=== PATIENT | female | born 1965 | race Caucasian/White ===

== ENCOUNTER → 2016-12-31 | Day surgery (SDC) | payer OTHER ==
--- NOTE | 2017-01-01 09:07 | OP ---
DATE OF OPERATION: 12/31/2016 PREOPERATIVE DIAGNOSIS: Right breast mass and right axillary suspicious lymph node. POSTOPERATIVE DIAGNOSIS: Right breast mass and right axillary suspicious lymph node. PROCEDURE: Right ultrasound-guided core biopsies of right axillary node and right breast mass. ANESTHESIA: Local. ATTENDING SURGEON: Ayaz Douglas MD ESTIMATED BLOOD LOSS: Minimal. COMPLICATIONS: None. DESCRIPTION OF PROCEDURE: Patient was made aware of the risks and benefits of the procedure and consented. She was placed in the supine position. The right axilla was approached first. Under sterile conditions with 1% Lidocaine for local anesthesia, a small kellie was made in the skin. Using a 13-guage suction biopsy device of the right using an inferolateral approach, multiple cores were obtained and submitted to Pathology. Likewise, under ultrasound guidance, a clip was placed into the biopsy region, well tolerated by patient. Steri-Strips and a sterile bandage were applied. Thereafter, patient got a little bit dizzy, and we had to wait some time with Trendelenburg position, but she was then ready for the right breast biopsy. Under sterile conditions with 1% Lidocaine for local anesthesia, a small kellie was made in the skin. Using a 13-guage suction biopsy device through the lateral approach under ultrasound guidance, ten cores were obtained and submitted to Pathology. Likewise, under ultrasound guidance, a U shaped clip was placed into the biopsy region, well tolerated by patient. Steri-Strips and a sterile bandage were applied. Will contact her with results. AYAZ DOUGLAS M.D. [id number]
--- NOTE | 2017-01-01 14:08 | PATH ---
Surgical Pathology Report Patient Name: ISSAC WASHBURN [facility]. Rec. #: [id number] /Age/Gender: 1965 (Age: 51) / F Account: [id number] Location: [facility] BREAST CENT Taken: 12/31/2016 Received: 12/31/2016 Reported: 01/01/2017 Physicians: Ayaz Douglas M.D. Specimen(s) Received A: RIGHT AXILLARY NODE CORE BIOPSY B: RIGHT BREAST CORE BIOPSY 10 O'CLOCK 5 CM FN Clinical History Palpable mass, highly suspicious/malignant Final Diagnosis A. 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 Comment: The largest extent of carcinoma in one core is 0.8 cm. Focal areas suggestive of micropapillary pattern are present. Results of Estrogen Receptor (ER) and Progesterone Receptor (AL) studies performed on block A1 at [facility] are as follows: ER (clone [id number] mouse monoclonal antibody by [employer]): ~80% nuclear staining with strong to moderate intensity (Positive). AL (clone16 mouse monoclonal antibody by [employer]): ~50-60% nuclear staining with strong to moderate intensity (Positive). Results of Her2 FISH studies will be reported separately in an addendum. Positive and negative controls (internal if applicable) show appropriate results. Formalin fixation and cold ischemic times are within current ASCO/CAP recommendations for ER, AL and Her2 testing. B. BREAST, RIGHT, 10:00, 5 CM FROM NIPPLE, US GUIDED CORE BIOPSY: INVASIVE DUCTAL CARCINOMA, MODERATELY DIFFERENTIATED (SEE COMMENT). LYMPHOVASCULAR INVASION PRESENT. Comment: The largest extent of carcinoma in one core is 0.4 cm. Immunohistochemical stain for E-Cadherin performed and interpreted at [facility] is positive in tumor cells supporting ductal differentiation Results of Estrogen Receptor (ER) and Progesterone Receptor (AL) studies performed on block B1 at [facility] are as follows: ER (clone [id number] mouse monoclonal antibody by [employer]): ~90% nuclear staining with strong to moderate intensity (Positive). AL (clone16 mouse monoclonal antibody by [employer]): <5% nuclear staining with moderate to weak intensity (Positive). Results of Her2 FISH studies will be reported separately in an addendum. Positive and negative controls (internal if applicable) show appropriate results. Formalin fixation and cold ischemic times are within current ASCO/CAP recommendations for ER, AL and Her2 testing. The case was preliminary discussed with Dr. Douglas on 01/01/17. Electronically Signed Alin Smith M.D. Addendum Reported: 01/04/2017 Addendum Diagnosis Part A: Results of Her2 (IHC) & Ki-67 studies performed on block A1 at [place], [place] ([id number]) are as follows: Her2 IHC (EP3 from [employer], formerly known as [id number], using [employer] Polymer Refine detection kit):1+ (Negative) Ki-67: up to 15-20% (Intermediate proliferation index) Results of Her2 FISH studies will be reported separately in an addendum. Positive and negative controls (internal if applicable) show appropriate results. Part B: Results of Her2 (IHC) & Ki-67 studies performed on block B1 at [place], [place] ([id number]) are as follows: Her2 IHC (EP3 from [employer], formerly known as [id number], using [employer] Polymer Refine detection kit): 2+ (Equivocal) Ki-67: ~20% (Intermediate proliferation index) Results of Her2 FISH studies will be reported separately in an addendum. Positive and negative controls (internal if applicable) show appropriate results. Alin Smith M.D. Gross Description A. Received in formalin labeled "right axilla" is a 2.5 x 2.0 x 0.3 cm aggregate of alvarez-yellow, irregular to cylindrical portions of fibroadipose tissue admixed with blood clot. The formalin is filtered and the specimen is entirely submitted in one cassette. Time to formalin fixation: Less than one minute Total formalin fixation time: Approximately 9 hours. B. Received in formalin labeled "right breast biopsy 10:00, 5 cmfn" is a 2.0 x 1.0 x 0.2 cm aggregate of multiple alvarez-yellow, irregular to cylindrical fragments of fibroadipose tissue admixed with blood clot. The formalin is filtered and the specimen is entirely submitted in one cassette. Time to formalin fixation: Less than one minute Total formalin fixation time: Approximately 9 hours. 12/31/2016 saudi12/31/2016
== END | disposition home or self-care (01) ==
LOC: FRADUS-SUR 08:19
PROVIDERS: ATTEND Surgery Surgical Oncology
PROC: 0HBT3ZX Excision of Right Breast, Percutaneous Approach, Diagnostic (ICD-10-PCS; principal; 2016-12-31)
PROC: 07B53ZX Excision of Right Axillary Lymphatic, Percutaneous Approach, Diagnostic (ICD-10-PCS; 2016-12-31)
PROC: BH47ZZZ Ultrasonography of Upper Extremity (ICD-10-PCS; 2016-12-31)
DX: C50.411 Malignant neoplasm of upper-outer quadrant of right female breast (principal); C77.3 Secondary and unspecified malignant neoplasm of axilla and upper limb lymph nodes
CPT/HCPCS: 19083; 76942-TC; 87899; 88305-TC; 88342-TC; A4648